=== PATIENT | female | born 1955 | race Caucasian/White ===

== ENCOUNTER → 2024-06-19 07:23 | Outpatient (REF) | payer BC, SELFPAY | LOC: HWRAD 07:23 | PROVIDERS: ATTENDING PHYSICIAN Family Medicine | DX: M54.16 Radiculopathy, lumbar region (principal) | CPT/HCPCS: 72110 ==

== ENCOUNTER → 2024-06-29 09:16 | Outpatient (REF) | payer BC, SELFPAY | LOC: HWWDC 09:16 | PROVIDERS: ATTENDING PHYSICIAN Family Medicine | DX: Z12.31 Encounter for screening mammogram for malignant neoplasm of breast (principal) | CPT/HCPCS: 77063; 77067 ==